=== PATIENT | male | born 1940 | race Caucasian/White ===

== ENCOUNTER → 2017-06-09 | Outpatient (CLI) | payer MEDICARE | LOC: LAB 12:50 | DX: R97.20 Elevated prostate specific antigen [PSA] (principal) | CPT/HCPCS: 87070 ==

== ENCOUNTER → 2017-06-17 | Outpatient (CLI) | payer MEDICARE | LOC: PLD 11:53 | DX: R97.20 Elevated prostate specific antigen [PSA] (principal) | CPT/HCPCS: 88305; 88341; 88342 ==

== ENCOUNTER 2019-07-27 10:21 | Day surgery (SDC) | payer MEDICARE ==
[~2019-07-27] VITALS: Ht 177.8 cm; Wt 68.4 kg
[~2019-07-27 10:21] MED LIST: ASPI325EC PO; Amlodipine Besy10 MG PO; BENA20 PO; Lovastatin20 MG PO
--- NOTE | 2019-07-27 12:50 | NUR ---
07/27/19 1250 Carol Montano PT AND SPOUSE UPDATED THROUGHOUT PRE-OP REGARDING DELAY. CALL LIGHT WITHIN REACH, DENIES NEEDS. VERY UNDERSTANDING REGARDING DELAY.
--- NOTE | 2019-07-27 13:37 | NUR ---
07/27/19 1337 Joey Solorzano SOAKED GELFORM IN 3 MLS EPI.
--- NOTE | 2019-07-27 17:18 | NUR ---
07/27/19 171 Marci Penn PT RATES PAIN AT SURGICAL SITE 11/08 AND STATES IT IS TOLERABLE.
== END 2019-07-27 17:47 | disposition home or self-care (01) ==
LOC: ORSCSDS 10:21
PROVIDERS: Otolaryngology
PROC: 09BB0ZZ Excision of Right Mastoid Sinus, Open Approach (ICD-10-PCS; principal; 2019-07-27 12:00)
PROC: 09Q90ZZ Repair Right Auditory Ossicle, Open Approach (ICD-10-PCS; principal; 2019-07-27 12:00)
DX: H71.01 Cholesteatoma of attic, right ear (principal); I10 Essential (primary) hypertension; I25.10 Atherosclerotic heart disease of native coronary artery without angina pectoris; F17.210 Nicotine dependence, cigarettes, uncomplicated; Z79.82 Long term (current) use of aspirin; Z79.899 Other long term (current) drug therapy
CPT/HCPCS: J0171; J1100; J2250; J2370; J2405; J2704; J3010; J7120

== ENCOUNTER 2020-06-25 06:10 | Day surgery (SDC) | payer MEDICARE ==
[~2020-06-25] VITALS: Ht 177.8 cm; Wt 55.7 kg
--- NOTE | 2020-06-25 08:30 | NUR ---
06/25/20 0830 Alicia Pablo 10 ML LIDOCAINE 2% W/EPI 1:100,000 MIXED WITH NACL 10CC TO FOPR LIDOCAINE 1% W/EPI 1:200,000. MIXED IN OR BY RN
--- NOTE | 2020-06-25 11:11 | NUR ---
06/25/20 Estrella Soler PT. DANI, PT. PLACED HEARING AID INTO LEFT EAR. GLASSES GIVEN TO PT. PT. DENIES PAIN OR NAUSEA. PT. DRINKING COFFEE. PT. VERBALIZES BEING WARM ENOUGH. CALL LIGHT WITHIN REACH.
== END 2020-06-25 11:46 | disposition home or self-care (01) ==
LOC: ORSCSDS 06:10
PROVIDERS: Otolaryngology
PROC: 0NR507Z Replacement of Right Temporal Bone with Autologous Tissue Substitute, Open Approach (ICD-10-PCS; principal; 2020-06-25 07:30)
DX: H71.01 Cholesteatoma of attic, right ear (principal); I10 Essential (primary) hypertension; I25.10 Atherosclerotic heart disease of native coronary artery without angina pectoris; F17.210 Nicotine dependence, cigarettes, uncomplicated; Z79.899 Other long term (current) drug therapy; Z79.82 Long term (current) use of aspirin
CPT/HCPCS: A9270; J0171; J1100; J2250; J2370; J2405; J2704; J3010; J7120

== ENCOUNTER 2020-11-16 17:03 | Observation (INO) | payer MEDICARE ==
[~2020-11-16] VITALS: Ht 172.7 cm; Wt 34.4 kg
[2020-11-16 17:35] LABS: BASOPHILS ABSOLUTE AUTO 0.01 K/mm3 (0.00-0.23); BASOPHILS PERCENT AUTO 0 % (0-2); EOSINOPHILS PERCENT AUTO 0 % (0-6); Hematocrit 19.6 % (37.0-53.0); Hemoglobin 6.7 g/dL (13.5-17.5); IMMATURE GRAN ABSOLUTE AUTO 0.06 K/mm3 (0.00-0.10); IMMATURE GRAN PERCENT AUTO 1 % (0-1); LYMPHOCYTES ABSOLUTE AUTO 0.97 K/mm3 (0.84-5.20); LYMPHOCYTES PERCENT AUTO 8 % (21-46); MONOCYTES ABSOLUTE AUTO 0.75 K/mm3 (0.16-1.47); MONOCYTES PERCENT AUTO 6 % (4-13); Mean Corpuscular HGB 33.2 pg (26.0-34.0); Mean Corpuscular HGB Conc 34.2 g/dL (31.5-36.5); Mean Corpuscular Volume 97 fL (80-100); Mean Platelet Volume 10.3 fL (9.1-12.4); NEUTROPHILS ABSOLUTE AUTO 10.58 K/mm3 (1.96-9.15); NEUTROPHILS PERCENT AUTO 86 % (41-73); Platelet Count 352 K/mm3 (150-400); RDW Coefficient Variation 12.5 % (11.7-14.2); RDW Standard Deviation 44.2 fL (35.1-46.3); Red Blood Cell Count 2.02 M/mm3 (4.30-5.90); White Blood Cell Count 12.37 K/mm3 (4.00-11.30)
[2020-11-16 17:56] LABS: Alanine Aminotransfer (ALT/SGP 21 U/L (12-78); Albumin/Globulin Ratio 0.8 (0.8-1.8); Alk Phos 91 U/L (50-136); Anion Gap 6 mmol/L (6-16); Aspartate Aminotrans (AST/SGOT 13 U/L (12-37); Bilirubin, Total 0.3 mg/dL (0.1-1.0); Blood Urea Nitrogen 60 mg/dL (8-24); Bun/Creatinine Ratio 32.6 (12.0-20.0); CO2, Blood 16 mmol/L (21-32); CPK Creatine Kinase 157 U/L (39-308); Calcium, Blood 9.3 mg/dL (8.5-10.1); Chloride, Blood 118 mmol/L (98-108); Creatinine, Blood 1.84 mg/dL (0.60-1.20); Globulin, Blood 3.8 g/dL (2.2-4.0); Glomerular Filtration Rate 38 (60-); Glucose, Blood 108 mg/dL (70-99); Potassium, Blood 4.5 mmol/L (3.5-5.5); Sodium, Blood 140 mmol/L (136-145); Total Protein, Blood 6.8 g/dL (6.4-8.2); Troponin I <0.015 ng/mL (0.000-0.040)
[2020-11-16 21:44] LABS: Source, Urine Catheter
[2020-11-16 21:47] LABS: Bilirubin, Urine Neg (Neg); Blood, Urine 5+ (Neg); Glucose Qualitative, Urine Neg (Neg); Ketones, Urine Neg (Neg); Leukocyte Esterase, Urine 3+ (Neg); Nitrite, Urine Neg (Neg); Protein, Urine 1+ (Neg); Specific Gravity, Urine 1.015 (1.003-1.022); Urobilinogen, Urine NORM (Normal)
[2020-11-16 21:58] LABS: Appearance, Urine Hazy (Clear); Color, Urine Yellow (P-Yellow)
[2020-11-16 22:00] LABS: Amorphous Mod (0-Heavy); Bacteria Few /hpf; Squamous Epithelial Cells Few /hpf (Few)
--- NOTE | 2020-11-17 04:42 | NUR ---
SHIFT SUMMARY NEW ED ADMIT THIS EVENING. PT HAS BEEN MOSTLY NONVERBAL. WILL MOSTLY NOD HEAD AND OCCASSIONALLY SAY YES OR NO TO SIMPLE QUESTIONS. PT IS VERY DECONDITIONED AND CACHECTIC. SCATTERED WOUNDS TO BUE'S. TAVERAS CATHETER PLACED. PATENT AND DRAINING. PT RESTED MOST OF THE EVENING. BECAME ANXIOUS AT ONE POINT, PULLING ON TAVERAS AND ATTEMPTING TO GET OUT OF BED. MEDICATED X 1 W/ 1 MG ATIVAN. PT RESTING WELL AFTER. PT DENIES PAIN. NO NONVERBAL S/S OF PAIN. PT WILL NOT LEAVE GOWN ON. PT APPEARS COMFORTABLE AT THIS TIME. WILL CONTINUE TO MONITOR.
--- NOTE | 2020-11-17 06:46 | NUR ---
DAUGHTER ROSETTA CALLED THIS AM. SHE AND HER BROTHER LIVE IN [facility]. SHE JUST FOUND OUT THIS AM THAT PT WAS IN THE HOSPITAL. PT WOULD LIKE A CALL FROM CARE MANAGEMENT REGARDING OPTIONS FOR D/C WITH HOSPICE. MAY POTENTIALLY WANT PT TO GO DOWN CLOSE TO THEM. ROSETTA'S PHONE NUMBER [phone]
--- NOTE | 2020-11-17 11:43 | NUR ---
PALIATIVE CARE HAS BEEN IN CONTACT WITH THE FAMILY THIS SHIFT. PATIENT'S ATTENDS HAVE BEEN CHANGED, PATIENT REPOSITIONED AND AN EGG CRATE MATTRESS HAS BEEN PLACED BENEATH HIM. TAVERAS IS IN PLACE. PAIN MANAGED WITH TYLENOL SUPPOSITY. WILL CONTINUE TO MONITOR
--- NOTE | 2020-11-17 11:53 | NUR ---
pt minimally reponsive. daughter states his hearing is minimal in one ear. pt frail dry and looks like multiple fall. Daugher stated he was not wanting to eat and has been depressed. Pt his tight and guarding and slighty labored review of symtoms with nursing. started pt on some rectal tylenol and staff pbthered him and turned him breathing looks more comfortable. long conversation with daughter. he didnot tell her he had cancer. she did not realize how close to end of life he is she is going to come to [place] from [facility]. Held my cell phone to both his ears on amplifier and had his daughter talk to him. He opened on eye a littie whe she spoke in left ear. I spoke loudly in both ears and patted his shoulder and no response. He does move a little and grabs the blanket. Daughter states he has lost his will to live.
--- NOTE | 2020-11-17 14:15 | NUR ---
THE PATIENT'S SISTER IS AT THE BEDSIDE
--- NOTE | 2020-11-17 18:32 | NUR ---
PATIENT AWAKENS TO PAIN WHILE REPOSITIONING. HE WILL OPEN HIS RIGHT EYE SLIGHTLY. THE PATIENT SISTER DID COME TO VISIT HIM. PALLIATIVE CARE SAW THE PATIENT TODAY. NITIN IS IN PLACE. ON RA. THE PATIENT'S DAUGHTER IS TRAVELING FROM [place] TO SEE THE PATIENT. WILL CONTINUE TO MONITOR
--- NOTE | 2020-11-18 04:50 | NUR ---
SHIFT SUMMARY PT REMAINED MOSTLY NONVERBAL THIS EVENING. SLEPT THROUGH MUCH OF THE NIGHT. APPEARED COMFORTABLE. PT OCCASSIONALLY BECOMES ANXIOUS. ATTEMPTING TO GET OUT OF BED AND PULLING ON CATHETER. MEDICATED X 1 WITH IV ATIVAN AND X 1 WITH IV HALDOL. BOTH APPEARED EFFECTIVE. SWABBED PT'S MOUTH FOR COMFORT BUT OTHERWISE PT HAS HAD NO ORAL INTAKE AND DOES APPEAR TO BE AWAKE ENOUGH OR OF THE MENTAL CAPACITY TO DO SO. PT CACHECTIC AND SEVERELY DECONDITIONED. TAVERAS CATHETER PATENT AND DRAINING. RESTING COMFORTABLY AT THIS TIME. WILL CONTINUE TO MONITOR.
--- NOTE | 2020-11-18 08:13 | NUR ---
CC ASSESSMENT: PT IN NO APAPRENT DISTRESS. NO DYSPNEA/SOB/SECRETIONS. TAVERAS PATENT & DRAINING. NO FAMILY PRESENT. WCTM.
--- NOTE | 2020-11-18 11:40 | NUR ---
CC ASSESSMENT: PT IN NO APAPRENT DISTRESS. NO DYSPNEA/SOB/SECRETIONS. NO FAMILY PRESENT. WCTM.
--- NOTE | 2020-11-18 12:36 | NUR ---
CC ASSESSMENT: PT IN NO APPARENT DISTRESS. NO DYSPNEA/SOB. NO FAMILY PRESENT. WCTM.
--- NOTE | 2020-11-18 15:04 | NUR ---
CC ASSESSMENT: PT IN NO APAPRENT DISTRESS. MEDICATED FOR EXCESSIVE SECRETIONS PER EMAR. NO FAMILY PRESENT. WCTM.
--- NOTE | 2020-11-18 16:02 | NUR ---
CC ASSESSMENT: PT IN NO APPARENT DISTRESS. SCOPOLAMINE TOP BEHIND R EAR. NO FAMILY MEMBERS PRESENT; PER PALIATIVE CARE, DAUGHTER TO ARRIVE AT HOSPITAL LATER THIS EVENING. WCTM.
--- NOTE | 2020-11-18 17:37 | NUR ---
SHIFT SUMMARY: NO ACUTE EVENTS TO REPORT THIS SHIFT. COMFORT CARE MEASURES CONTINUING: MEDICATED FOR SECRETIONS & AGITATION (TYLENOL [place]) PER EMAR. TAVERAS PATENT & DRAINING. NO FAMILY IN ROOM; FAMILY EXPECTED LATER THIS EVENING FROM [place]. ANDREA.
--- NOTE | 2020-11-18 18:00 | NUR ---
CC ASSESSMENT: PT IN NO APPARENT DISTRESS. NO DYSPNEA/SOB/SECRETIONS. NO FAMILY PRESENT. TAVERAS PATENT & DRAINING. WCTM.
--- NOTE | 2020-11-18 21:10 | NUR ---
PT RESTING COMFORTABLY. DAUGHTER AND SON ARRIVED FROM [facility] AND ARE AT BEDSIDE. COMFORT CARE CART PROVIDED AND QUESTIONS ANSWERED. PT HAS CONTINUED TO BE MOSTLY UNRESPONSIVE THIS SHIFT. RESPONDING SLIGHTLY TO DAUGHTER'S TOUCH AND VOICE. PT APPEARS TO RECOGNIZE THAT SHE IS THERE.
--- NOTE | 2020-11-19 05:34 | NUR ---
SHIFT SUMMARY SON AND DAUGHTER IN TO VISIT THIS EVENING. SPENT SEVERAL HOURS AT BEDSIDE THEN LEFT FOR THE NIGHT. DAUGHTER STATED THAT SHE WOULD BE BACK EARLY THIS AM AGAIN TO SIT WITH PT. PT HAS BEEN MOSTLY UNRESPONSIVE. APPEARS COMFORTABLE. TAVERAS CATH PATENT AND DRAINING. WILL CONTINUE TO MONITOR.
--- NOTE | 2020-11-19 08:44 | NUR ---
CC ASSESSMENT: PT IN NO APPARENT DISTRESS. NO DYSPNEA/SOB/SECRETIONS. FAMILY IN ROOM. NITIN Gandara[ATENT AND DRAINING. WCTM.
--- NOTE | 2020-11-19 10:44 | NUR ---
CC ASSESSMENT: PT IN NO APPARENT DISTRESS. NO DYSPNEA/SOB/SECRETIONS. FAMILY IN ROOM. WCTM.
--- NOTE | 2020-11-19 12:25 | NUR ---
CC ASSESSMENT: PT IN NO APPARENT DISTRESS. NO DYSPNEA/SOB/SECRETIONS. TAVERAS PATENT & DRAINING. NO FAMILY IN ROOM. WCTM.
--- NOTE | 2020-11-19 14:23 | NUR ---
CC ASSESSMENT: MEDICATED FOR PAIN PER EMAR. NO DYSPNEA/SOB/SECRETIONS. FAMILY IN ROOM. WCTM.
--- NOTE | 2020-11-19 16:06 | NUR ---
CC ASSESSMENT: MEDICATED FOR PAIN PER EMAR. NO DYSPNEA/SOB/SECRETIONS. FAMILY IN ROOM. WCTM.
--- NOTE | 2020-11-19 18:44 | NUR ---
CC ASSESSMENT: PT IN NO APPARENT DISTRESS. NO DYSPNEA/SOB/SECRETIONS. FAMILY IN ROOM. WCTM.
--- NOTE | 2020-11-19 18:56 | NUR ---
Spiritual care note: I met with pt's dtr and YOVANA at bedside. Both appear loving and devoted. Dtr, Jemima spoke at length about her father's stubborness and her love for him. Family asked great questions about the dying process/symptom management. They "just don't want him to suffer." Pt appeared a bit restless. RN immediately responded with medication at family request. Non-druze family, but they were receptive to emotional affirmation and gentle personnel counselor. I will remain available.
--- NOTE | 2020-11-19 19:18 | NUR ---
SHIFT SUMMARY: NO ACUTE EVENTS TO REPORT THSI SHIFT. PT REMAINS ON COMFORT CARE. MEDICATED FOR PAIN PER EMAR. SCOPOLAMINE TOP BEHIND R EAR; NO SECRETIONS; NO DYSPNEA/SOB. TAVERAS PATENT & DRAINING. FAMILY IN ROOM T/O SHIFT. REPORT GIVEN TO ONCOMING RN.
--- NOTE | 2020-11-20 10:09 | NUR ---
provided family with estate planning information.
== END 2020-11-20 01:05 | disposition home or self-care (01) ==
LOC: ER 17:03 → MEDS 17:04
PROVIDERS: Emergency Medicine; Nurse Practitioner Acute Care; ADMIT Internal Medicine
DX: I60.9 Nontraumatic subarachnoid hemorrhage, unspecified (principal); I62.00 Nontraumatic subdural hemorrhage, unspecified; C25.0 Malignant neoplasm of head of pancreas; C25.9 Malignant neoplasm of pancreas, unspecified; C78.7 Secondary malignant neoplasm of liver and intrahepatic bile duct; N13.2 Hydronephrosis with renal and ureteral calculous obstruction; M41.9 Scoliosis, unspecified; N28.9 Disorder of kidney and ureter, unspecified; K55.019 Acute (reversible) ischemia of small intestine, extent unspecified; N17.9 Acute kidney failure, unspecified; D64.9 Anemia, unspecified; I10 Essential (primary) hypertension; E78.00 Pure hypercholesterolemia, unspecified; F17.210 Nicotine dependence, cigarettes, uncomplicated; J43.9 Emphysema, unspecified; S01.01XA Laceration without foreign body of scalp, initial encounter; Z66 Do not resuscitate; Z51.5 Encounter for palliative care; W19.XXXA Unspecified fall, initial encounter
CPT/HCPCS: 51702; 70450; 71260; 72125; 74177; 80053; 81001; 82550; 83605; 84484; 85025; 87040; 87086; 93005; 93010; 96374; 96375; 96376; 99285-25; A9270; G0378; J1630; J2060; J7030; Q9967